=== PATIENT | male | born 1945 | race Caucasian/White ===

== ENCOUNTER → 2017-01-26 | Outpatient (CLI) | payer OTHER ==
[~2017-01-26] MED LIST: ALBU8.5H5 INH; CEPH-368 PO; CHOL2000 PO; CYCL5TAB PO; DILT120T4 PO; FLUO20CA8 PO; HYDR-3307 PO; IBUP200T5 PO; METH750T87 PO; MONT10TA6 PO; NITR0.4T SL; OMEG300C PO; ROSU10TA PO; SENN8.6T98 PO; THYR60TA PO; TRAM50TA2 PO; VALS160T3 PO; VALS1TAB7 PO
== END | disposition home or self-care (01) ==
LOC: CVU 08:27
PROVIDERS: ATTEND Internal Medicine Cardiovascular Disease
DX: I70.0 Atherosclerosis of aorta (principal); G12.9 Spinal muscular atrophy, unspecified
CPT/HCPCS: 93975

== ENCOUNTER → 2018-08-16 | Outpatient (CLI) | payer MEDICARE, OTHER ==
[~2018-08-16] MED LIST changes: +IBUP-1484 PO; -IBUP200T5 PO; +LOSA1TAB25 PO; +ROSU5TAB PO
== END | disposition home or self-care (01) ==
LOC: STAR 14:06
PROVIDERS: ATTEND Otolaryngology
DX: Z01.818 Encounter for other preprocedural examination (principal); J32.0 Chronic maxillary sinusitis; J32.2 Chronic ethmoidal sinusitis
CPT/HCPCS: 93005

== ENCOUNTER 2018-08-21 06:02 | Observation (INO) | payer MEDICARE, OTHER ==
[~2018-08-21] VITALS: Ht 175.3 cm; Wt 91.0 kg
[2018-08-21] MEDS ORDERED: LACTATED RINGERS 1,000 ML IV SCH (06:27)
[2018-08-21] MEDS ORDERED: LIDOCAINE 1%-EPI 1:100K, 30ML ONE (06:49)
[2018-08-21] MEDS ORDERED: EPINEPHRINE TOPICAL SOLN 1 MG/ML, 30ML ONE (06:49)
[2018-08-21] MEDS ORDERED: BACITRACIN 50,000 UNIT ONE (06:50)
[2018-08-21] MEDS ORDERED: BACITRACIN OINT 500U/GM, 15 GM ONE (06:50)
[2018-08-21] MEDS ORDERED: OXYMETAZOLINE NASAL SPRAY 0.05%, 15ML ONE (06:50)
[2018-08-21] MEDS ORDERED: ALBUTEROL/IPRATROPIUM 2.5MG/0.5MG, 3 ML NEB STA (07:03)
[2018-08-21] MEDS ORDERED: FLUORESCEIN SODIUM 500 MG/5 ML ONE (07:25)
[2018-08-21] MEDS ORDERED: FENTANYL PF 100 MCG/2ML ONE ×2 (07:43→09:46)
[2018-08-21] MEDS ORDERED: CEFAZOLIN 1,000 MG ONE (08:45)
[2018-08-21] MEDS ORDERED: PHENYLEPHRINE 10 MG/ML ONE (08:45)
[2018-08-21] MEDS ORDERED: PROPOFOL 10 MG/ML, 20ML ONE ×2 (08:45)
[2018-08-21] MEDS ORDERED: LIDOCAINE-MPF 2% ,5ML ONE (08:45)
[2018-08-21] MEDS ORDERED: ROCURONIUM 10MG/ML,5ML ONE (08:45)
[2018-08-21] MEDS: MEPERIDINE/PF 25MG/0.5ML IVPush PRN ×2 (09:26→10:26)
[2018-08-21] MEDS: FENTANYL PF 100 MCG/2ML IV PRN ×2 (09:47→09:52)
[2018-08-21] MEDS ORDERED: HYDROcodone/APAP 7.5-325MG/15ML UDC ONE (10:23)
[2018-08-21] MEDS ORDERED: MEPERIDINE/PF 50 MG/ML ONE (10:25)
[2018-08-21] MEDS ORDERED: LABETALOL 5MG/ML, 20ML IV PRN (10:30)
[2018-08-21] MEDS ORDERED: ALBUTEROL/IPRATROPIUM 2.5MG/0.5MG, 3 ML NPPB PRN (10:30)
[2018-08-21] MEDS: HYDROcodone/APAP 7.5-325MG/15ML UDC PO PRN ×2 (10:30→20:09)
[2018-08-21] MEDS ORDERED: ACETAMINOPHEN 325 MG TABLET PO PRN (10:30)
[2018-08-21] MEDS ORDERED: hydrALAzine 20 MG/ML, 1ML IV PRN (10:30)
[2018-08-21] MEDS ORDERED: PROMETHAZINE 25 MG/ML, 1ML IV PRN (10:30)
[2018-08-21] MEDS ORDERED: ONDANSETRON 2MG/ML, 2ML IV PRN (10:30)
[2018-08-21] MEDS: LACTATED RINGERS 1,000 ML IV SCH (17:35)
[2018-08-21] MEDS ORDERED: ACETAMINOPHEN 500 MG TABLET PO PRN (18:00)
[2018-08-21] MEDS ORDERED: ONDANSETRON 2MG/ML, 2ML IVPush PRN (18:00)
[2018-08-21 18:27] VITALS: BP 131/83
[2018-08-21] MEDS ORDERED: ALBUTEROL SULFATE 2.5 MG/3 ML NPPB PRN (19:00)
[2018-08-21] MEDS ORDERED: CEPHALEXIN 250 MG CAPSULE ONE (20:02)
[2018-08-21] MEDS: CEPHALEXIN 500 MG CAPSULE PO SCH (20:10)
[2018-08-21] MEDS ORDERED: ATORVASTATIN 10 MG TABLET PO SCH (21:00)
[2018-08-22] MEDS: HYDROcodone/APAP 5/325 TABLET PO PRN ×2 (00:05→09:36)
[2018-08-22 00:10] VITALS: BP 147/93
[2018-08-22] MEDS: LACTATED RINGERS 1,000 ML IV SCH (03:35)
[2018-08-22 03:58] VITALS: BP 143/90
[2018-08-22] MEDS ORDERED: THYROID 30 MG TABLET PO SCH (06:00)
[2018-08-22 06:40] VITALS: BP 151/92
[2018-08-22] MEDS ORDERED: LOSARTAN 50MG TABLET PO SCH (09:00)
[2018-08-22] MEDS ORDERED: MONTELUKAST 10 MG TABLET PO SCH (09:00)
[2018-08-22] MEDS ORDERED: HYDROCHLOROTHIAZIDE 12.5 MG CAPSULE PO SCH (09:00)
[2018-08-22] MEDS ORDERED: CEPHALEXIN 250 MG CAPSULE ONE (09:16)
[2018-08-22] MEDS: CEPHALEXIN 500 MG CAPSULE PO SCH (09:36)
== END 2018-08-22 11:27 | disposition home or self-care (01) ==
LOC: OUT 06:02 → ORIP 15:57 → 4NOR 18:17
PROVIDERS: ADMIT Otolaryngology; ATTEND Otolaryngology
DX: J34.2 Deviated nasal septum (principal); J32.9 Chronic sinusitis, unspecified; J32.2 Chronic ethmoidal sinusitis; J32.0 Chronic maxillary sinusitis
CPT/HCPCS: 30520; 31240; 31255; 31256; 31276; 88304; 94640; G0378; J0690; J2175; J2370; J2704; J3010; J3490; J7120; J7620

== ENCOUNTER → 2021-02-22 | Outpatient (CLI) | payer MEDICARE, OTHER ==
[~2021-02-22] MED LIST changes: +FLUO20CA23 PO; -FLUO20CA8 PO; +HYDR-3248 PO; -HYDR-3307 PO; -IBUP-1484 PO; +IBUP-1902 PO; -NITR0.4T SL; +NITR0.4T41 SL; -ROSU10TA PO; +ROSU10TA2 PO
[2021-02-22 14:30] LABS: MICROSCOPIC NOT IND
[2021-02-22 14:31] LABS: BASOPHILS % (AUTO) 0 % (0-1); EOSINOPHILS % (AUTO) 5 % (1-7); LYMPHOCYTES % (AUTO) 25 % (22-44); MEAN CORPUSCULAR HEMOGLOBIN 31.9 pg (27.5-34.5); MEAN PLATELET VOLUME 7.7 fL (7.4-10.4); MONOCYTES % (AUTO) 11 % (2-9); NEUTROPHILS % (AUTO) 59 % (42-75); PLATELET COUNT 264 x10^3/uL (130-400); RED BLOOD COUNT 4.93 x10^6/uL (4.38-5.82); RED CELL DISTRIBUTION WIDTH 13.1 % (9.4-14.8)
[2021-02-22 14:35] LABS: MD NO
[2021-02-22 14:38] LABS: ALANINE AMINOTRANSFERASE 30 U/L (12-78); ALBUMIN 3.9 g/dL (3.4-5.0); ANION GAP 3 mmol/L (5-15); CALCIUM 9.4 mg/dL (8.5-10.1); CHLORIDE 104 mmol/L (98-107); CREATININE 1.06 mg/dL (0.7-1.3)
[2021-02-22 14:41] LABS: ALKALINE PHOSPHATASE 81 U/L (45-117); BILIRUBIN,TOTAL 0.5 mg/dL (0.2-1.0); INTERNATIONAL NORMALIZED RATIO 0.98 (0.93-1.1); PROTHROMBIN TIME 10.5 Seconds (9.6-11.5); TOTAL PROTEIN 7.5 g/dL (6.4-8.2)
== END | disposition home or self-care (01) ==
LOC: STAR 13:01
PROVIDERS: ATTEND Neurological Surgery
DX: Z01.810 Encounter for preprocedural cardiovascular examination (principal); Z01.811 Encounter for preprocedural respiratory examination; Z01.812 Encounter for preprocedural laboratory examination; M51.26 Other intervertebral disc displacement, lumbar region; M48.061 Spinal stenosis, lumbar region without neurogenic claudication; R79.1 Abnormal coagulation profile; R94.31 Abnormal electrocardiogram [ECG] [EKG]; R82.90 Unspecified abnormal findings in urine; M47.816 Spondylosis without myelopathy or radiculopathy, lumbar region; M25.78 Osteophyte, vertebrae; M41.86 Other forms of scoliosis, lumbar region; I45.10 Unspecified right bundle-branch block; Z20.822 Contact with and (suspected) exposure to COVID-19
CPT/HCPCS: 36415; 72110; 80053; 81003; 85025; 85610; 85730; 93005; U0003

== ENCOUNTER 2021-02-26 05:47 | Observation (INO) | payer MEDICARE, OTHER ==
[~2021-02-26] VITALS: Ht 175.3 cm; Wt 95.8 kg
[2021-02-26] MEDS ORDERED: CHLORHEXIDINE 15 ML UDC ONE (06:08)
[2021-02-26] MEDS ORDERED: BUPIVACAINE 0.25% ONE (06:17)
[2021-02-26] MEDS ORDERED: BUPIVACAINE/PF 0.5% ONE (06:17)
[2021-02-26] MEDS ORDERED: FENTANYL PF 250 MCG/5ML ONE (06:17)
[2021-02-26] MEDS ORDERED: EPINEPHRINE 1 MG/ML, 1ML ONE (06:17)
[2021-02-26] MEDS ORDERED: BACITRACIN 50,000 UNIT ONE (06:17)
[2021-02-26] MEDS ORDERED: VANCOMYCIN 1,000 MG ONE (06:17)
[2021-02-26] MEDS ORDERED: GLYCOPYRROLATE 0.2MG/1ML, 5ML ONE (06:19)
[2021-02-26] MEDS ORDERED: CEFAZOLIN 1,000 MG ONE (06:19)
[2021-02-26] MEDS ORDERED: DEXAMETHASONE 4 MG/ML, 1ML ONE (06:19)
[2021-02-26] MEDS ORDERED: ONDANSETRON 2MG/ML, 2ML ONE (06:19)
[2021-02-26] MEDS ORDERED: PROPOFOL 10 MG/ML, 20ML ONE (06:19)
[2021-02-26] MEDS ORDERED: ROCURONIUM 10MG/ML,5ML ONE (06:19)
[2021-02-26] MEDS ORDERED: NEOSTIGMINE 1 MG/ML, 10ML ONE (06:19)
[2021-02-26] MEDS ORDERED: LACTATED RINGERS 1,000 ML IV SCH (06:30)
[2021-02-26] MEDS ORDERED: LIDOCAINE-MPF 1%, 2ML INFIL ONE (06:30)
[2021-02-26] MEDS ORDERED: CHLORHEXIDINE 15 ML UDC PO ONE (06:30)
[2021-02-26] MEDS ORDERED: HYDROmorphone 1 MG/ML, 1ML INJ IVPush PRN (07:00)
[2021-02-26] MEDS ORDERED: MEPERIDINE/PF 25MG/0.5ML IVPush PRN (07:00)
[2021-02-26] MEDS ORDERED: ACETAMINOPHEN 325 MG TABLET PO PRN (07:00)
[2021-02-26] MEDS ORDERED: hydrALAzine 20 MG/ML, 1ML IV PRN (07:00)
[2021-02-26] MEDS ORDERED: ONDANSETRON 2MG/ML, 2ML IVPush PRN ×2 (07:00→09:30)
[2021-02-26] MEDS ORDERED: FENTANYL PF 100 MCG/2ML IV PRN (07:00)
[2021-02-26] MEDS ORDERED: morphine SULFATE 10 MG/ML, 1ML IVPush PRN ×2 (07:00→09:30)
[2021-02-26] MEDS ORDERED: LABETALOL 5MG/ML, 20ML IV PRN (07:00)
[2021-02-26] MEDS ORDERED: PHENYLEPHRINE 10 MG/ML ONE (07:21)
[2021-02-26] MEDS ORDERED: FENTANYL PF 100 MCG/2ML ONE (08:05)
[2021-02-26] MEDS ORDERED: BUPIVACAINE LIPOSOME/PF 10ML INFIL ONE (08:13)
[2021-02-26] MEDS ORDERED: BUPIVACAINE/PF 0.25% EPIDPUSH ONE (08:15)
[2021-02-26] MEDS ORDERED: FENTANYL PF 100 MCG/2ML EPIDPUSH ONE (08:16)
[2021-02-26] MEDS ORDERED: PROMETHAZINE 25 MG/ML, 1ML IM PRN (09:30)
[2021-02-26] MEDS ORDERED: ALBUTEROL HFA 90 MCG/SPRAY INH PRN (09:30)
[2021-02-26] MEDS ORDERED: CYCLOBENZAPRINE 10 MG TABLET PO PRN (09:30)
[2021-02-26] MEDS ORDERED: HYDROcodone/APAP 5/325 TABLET PO PRN (09:30)
[2021-02-26] MEDS ORDERED: LABETALOL 5MG/ML, 20ML IVPush PRN (09:30)
[2021-02-26] MEDS ORDERED: NITROGLYCERIN SINGLE TAB 0.4 MG SL PRN (09:30)
[2021-02-26] MEDS ORDERED: MAGNESIUM HYDROXIDE 8%, 30ML UDC PO PRN (09:30)
[2021-02-26] MEDS ORDERED: METHOCARBAMOL 750 MG TABLET PO PRN (09:30)
[2021-02-26] MEDS ORDERED: METHOCARBAMOL 1,000 MG in DEXTROSE 5% 100 ML IV ONE (09:30)
[2021-02-26] MEDS ORDERED: SENNA/DOCUSATE TABLET PO PRN (09:30)
[2021-02-26] MEDS ORDERED: PHARMACY MAY ADJ FOR RENAL FX MC PRN (09:30)
[2021-02-26] MEDS ORDERED: DIPHENHYDRAMINE 50 MG CAPSULE PO PRN (09:30)
[2021-02-26] MEDS ORDERED: DIPHENHYDRAMINE 50 MG/ML, 1ML IM PRN (09:30)
[2021-02-26] MEDS ORDERED: HYDROcodone/APAP 7.5-325MG/15ML UDC ONE (10:08)
[2021-02-26] MEDS ORDERED: HYDROcodone/APAP 7.5-325MG/15ML UDC PO PRN (10:30)
[2021-02-26] MEDS: NS + 20MEQ KCL 1,000 ML IV SCH ×2 (12:08→21:00)
[2021-02-26 13:45] VITALS: BP 104/61
[2021-02-26] MEDS: CEFAZOLIN PMX 1GM/50ML 50 ML IVPB SCH (15:25)
[2021-02-26] MEDS: HYDROcodone/APAP 10/325 MG TABLET PO PRN ×2 (15:29→20:45)
[2021-02-26 19:26] VITALS: BP 132/75
[2021-02-26] MEDS: SODIUM CHLORIDE FLUSH 10ML SYR IVF SCH (21:00)
[2021-02-26 23:12] VITALS: BP 125/77
[2021-02-27] MEDS: CEFAZOLIN PMX 1GM/50ML 50 ML IVPB SCH (00:17)
[2021-02-27] MEDS: HYDROcodone/APAP 10/325 MG TABLET PO PRN ×4 (03:37→09:09)
[2021-02-27 04:07] VITALS: BP 126/77
[2021-02-27 06:33] VITALS: BP 125/70
[2021-02-27] MEDS: NS + 20MEQ KCL 1,000 ML IV SCH (07:00)
[2021-02-27] MEDS ORDERED: THYROID 30 MG TABLET PO SCH (09:00)
[2021-02-27] MEDS ORDERED: HYDROCHLOROTHIAZIDE 12.5 MG CAPSULE PO SCH (09:00)
[2021-02-27] MEDS: SODIUM CHLORIDE FLUSH 10ML SYR IVF SCH (09:00)
[2021-02-27] MEDS ORDERED: LOSARTAN 100 MG TAB PO SCH (09:00)
[2021-02-27] MEDS ORDERED: TEMPLATE NON-FORMULARY MED. (Losartan/Hydrochlorothiazide** (Losartan-Hctz 100-12.5 Mg Tab PO SCH (09:00)
[2021-02-27] MEDS ORDERED: MONTELUKAST 10 MG TABLET PO SCH (09:00)
[2021-02-27] MEDS ORDERED: HYDR-2214 PO (09:05)
[2021-02-27] MEDS ORDERED: CYCL10TA2 PO (09:05)
[2021-02-27] MEDS ORDERED: CEPH500T PO (09:08)
[2021-02-27 12:03] VITALS: BP 138/79
== END 2021-02-27 13:13 | disposition home or self-care (01) ==
LOC: OUT 05:47 → ORIP 09:03 → 4NE 10:38 → DCLOUNGE 02-27 13:03
PROVIDERS: ADMIT Neurological Surgery; ATTEND Neurological Surgery
DX: M48.061 Spinal stenosis, lumbar region without neurogenic claudication (principal); M51.16 Intervertebral disc disorders with radiculopathy, lumbar region; J45.909 Unspecified asthma, uncomplicated; K21.9 Gastro-esophageal reflux disease without esophagitis; E03.9 Hypothyroidism, unspecified; Z87.891 Personal history of nicotine dependence; Z79.899 Other long term (current) drug therapy
CPT/HCPCS: 63056; 63057; 72100; 96365; 96366; 96367; 96375; 97161; 97166; G0378; J0171; J0690; J1100; J2270; J2370; J2405; J2704; J2710; J2800; J3010; J3370; J3480; J7120; S0020